=== PATIENT | male | born 1995 | race Caucasian/White ===

== ENCOUNTER 2017-11-10 13:06 | Emergency (ER) | payer MEDICAID ==
[~2017-11-10] VITALS: Ht 177.8 cm; Wt 75.0 kg
[2017-11-10] MEDS ORDERED: LORazepam 2 mg/ml vial IV ONE ×2 (13:25→15:25)
[2017-11-10] MEDS ORDERED: normal saline 1000ML IV soln IVB ONE (13:25)
[2017-11-10 13:45] LABS: BASOPHILS # (AUTO) 0.1 X10'3 (0-0.2); EOSINOPHILS # (AUTO) 0.1 X10'3 (0-0.9); EOSINOPHILS % (AUTO) 1.3 % (0-6); HEMATOCRIT 43.6 % (42.0-52.0); HEMOGLOBIN 15.2 g/dl (14.0-17.9); LYMPHOCYTES # (AUTO) 3.8 X10'3 (1.1-4.8); LYMPHOCYTES % (AUTO) 38.2 % (21-51); MEAN CORPUSCULAR HEMOGLOBIN 32.3 PG (27.0-31.0); MEAN CORPUSCULAR HGB CONC 34.9 % (33.0-36.5); MEAN CORPUSCULAR VOLUME 92.3 FL (78-98); MEAN PLATELET VOLUME 8.1 FL (7.4-10.4); MONOCYTES % (AUTO) 10.2 % (2-12); NEUTROPHILS # (AUTO) 4.9 X10'3 (1.8-7.7); NEUTROPHILS % (AUTO) 49.3 % (42-75); PLATELET COUNT 293 X10'3 (140-440); RED BLOOD COUNT 4.73 X10'6 (4.70-6.10); RED CELL DISTRIBUTION WIDTH 12.7 % (11.5-14.5)
[2017-11-10 13:58] LABS: ALANINE AMINOTRANSFERASE 24 U/L (12-78); ALBUMIN 4.6 G/DL (3.4-5.0); ALBUMIN/GLOBULIN RATIO 1.5 (1.1-1.5); ALKALINE PHOSPHATASE 62 IU/L (46-116); ANION GAP 22 (8-16); ASPARTATE AMINO TRANSFERASE 23 U/L (10-37); BILIRUBIN,TOTAL 0.9 MG/DL (0.1-1.0); BLOOD UREA NITROGEN 10 MG/DL (7-18); BUN/CREATININE RATIO 6.5 (5.4-32.0); CALCIUM 9.1 MG/DL (8.5-10.1); CHLORIDE 99 MMOL/L (99-107); CREATININE 1.55 MG/DL (0.60-1.10); GLUCOSE 140 MG/DL (70-104); SODIUM 138 MMOL/L (135-145); TOTAL CARBON DIOXIDE 17.1 MMOL/L (24-32); TOTAL PROTEIN 7.7 G/DL (6.4-8.2); eGFR 56 ML/MIN
[2017-11-10 14:00] LABS: POTASSIUM 2.4 MMOL/L (3.5-5.1)
[2017-11-10] MEDS ORDERED: potassium Cl 20 mEq SR tablet PO STA (14:05)
[2017-11-10 15:19] LABS: D-DIMER < 0.19 MG/L FEU (0-0.50)
[2017-11-10 16:10] LABS: URINE AMPHETAMINE SCREEN NEGATIVE (Neg); URINE BARBITUATE SCREEN NEGATIVE (Neg); URINE BENZODIAZEPINES SCREEN NEGATIVE (Neg); URINE CANNABINOID SCREEN POSITIVE (Neg); URINE COCAINE SCREEN NEGATIVE (Neg); URINE METHADONE SCREEN NEGATIVE (Neg); URINE OPIATE SCREEN NEGATIVE (Neg); URINE PHENCYCLIDINE SCREEN NEGATIVE (Neg)
[2017-11-10 17:33] VITALS: BP 123/57
== END 2017-11-10 17:11 | disposition home or self-care (01) ==
LOC: ER 13:07 → EDBD 13:07 → ER 17:11
DX: R00.0 Tachycardia, unspecified (principal); F41.9 Anxiety disorder, unspecified; R06.4 Hyperventilation; F32.9 Major depressive disorder, single episode, unspecified
CPT/HCPCS: 36415; 71045; 80053; 80305; 85025; 85379; 93005; 96374; 96376; 99285; J2060; J7030

== ENCOUNTER 2017-11-11 09:13 | Emergency (ER) | payer MEDICAID ==
[~2017-11-11] VITALS: Ht 177.8 cm; Wt 75.0 kg
[2017-11-11] MEDS ORDERED: LORazepam 2 mg/ml vial IV ONE (11:15)
[2017-11-11 11:32] LABS: BASOPHILS % (AUTO) 0.7 % (0-1); EOSINOPHILS % (AUTO) 0.1 % (0-6); HEMATOCRIT 41.1 % (42.0-52.0); HEMOGLOBIN 14.4 g/dl (14.0-17.9); LYMPHOCYTES # (AUTO) 0.9 X10'3 (1.1-4.8); LYMPHOCYTES % (AUTO) 12.2 % (21-51); MEAN CORPUSCULAR HEMOGLOBIN 32.8 PG (27.0-31.0); MEAN CORPUSCULAR VOLUME 93.6 FL (78-98); MEAN PLATELET VOLUME 8.2 FL (7.4-10.4); MONOCYTES # (AUTO) 0.4 X10'3 (0-0.9); MONOCYTES % (AUTO) 5.2 % (2-12); NEUTROPHILS # (AUTO) 6.2 X10'3 (1.8-7.7); NEUTROPHILS % (AUTO) 81.8 % (42-75); PLATELET COUNT 213 X10'3 (140-440); RED BLOOD COUNT 4.39 X10'6 (4.70-6.10); RED CELL DISTRIBUTION WIDTH 12.9 % (11.5-14.5); WHITE BLOOD COUNT 7.6 X10'3 (4.5-11.0)
[2017-11-11 11:48] LABS: ALANINE AMINOTRANSFERASE 21 U/L (12-78); ALBUMIN 4.2 G/DL (3.4-5.0); ALBUMIN/GLOBULIN RATIO 1.4 (1.1-1.5); ALKALINE PHOSPHATASE 62 IU/L (46-116); ANION GAP 11 (8-16); ASPARTATE AMINO TRANSFERASE 18 U/L (10-37); BILIRUBIN,TOTAL 0.6 MG/DL (0.1-1.0); BLOOD UREA NITROGEN 8 MG/DL (7-18); BUN/CREATININE RATIO 7.3 (5.4-32.0); CALCIUM 8.6 MG/DL (8.5-10.1); CHLORIDE 108 MMOL/L (99-107); CREATININE 1.09 MG/DL (0.60-1.10); GLUCOSE 108 MG/DL (70-104); SODIUM 143 MMOL/L (135-145); TOTAL CARBON DIOXIDE 23.6 MMOL/L (24-32); TOTAL PROTEIN 7.3 G/DL (6.4-8.2); eGFR 85 ML/MIN
[2017-11-11 11:58] LABS: MAGNESIUM 1.8 MG/DL (1.5-2.4); PHOSPHORUS 1.7 MG/DL (2.3-4.5)
[2017-11-11 12:39] VITALS: BP 125/67
[2017-11-12] MEDS ORDERED: HYDR-3686 PO (12:46)
== END 2017-11-11 12:43 | disposition home or self-care (01) ==
LOC: ER 09:14
DX: R00.0 Tachycardia, unspecified (principal); F41.9 Anxiety disorder, unspecified; F32.9 Major depressive disorder, single episode, unspecified
CPT/HCPCS: 36415; 80053; 83735; 84100; 84443; 84484; 85025; 93005; 96374; 99285; J2060; J7030

== ENCOUNTER 2017-11-12 10:13 | Emergency (ER) | payer MEDICAID ==
[~2017-11-12] VITALS: Ht 175.3 cm; Wt 75.0 kg
[2017-11-12] MEDS ORDERED: hydrOXYzine 25 MG tablet PO ONE (12:40)
[2017-11-12] MEDS ORDERED: HYDR-3686 PO (12:46)
[2017-11-12 12:54] VITALS: BP 129/65
== END 2017-11-12 13:08 | disposition home or self-care (01) ==
LOC: ER 10:14
DX: R00.0 Tachycardia, unspecified (principal); F41.9 Anxiety disorder, unspecified; F32.9 Major depressive disorder, single episode, unspecified; Z79.899 Other long term (current) drug therapy
CPT/HCPCS: 93005; 99284; Q0177

== ENCOUNTER 2021-06-22 12:25 | Emergency (ER) | payer MEDICAID ==
[~2021-06-22] VITALS: Ht 182.9 cm; Wt 72.7 kg
[2021-06-22 14:16] VITALS: BP 141/80
[2021-06-22] MEDS ORDERED: MELO-102 PO (14:27)
== END 2021-06-22 17:06 | disposition home or self-care (01) ==
LOC: ER 12:25
DX: M25.511 Pain in right shoulder (principal); F32.9 Major depressive disorder, single episode, unspecified; Z79.899 Other long term (current) drug therapy
CPT/HCPCS: 99283

== ENCOUNTER 2021-08-15 03:12 | Emergency (ER) | payer MEDICAID ==
[~2021-08-15] VITALS: Ht 182.9 cm; Wt 81.8 kg
[~2021-08-15 03:12] MED LIST: MELO-102 PO
[2021-08-15 03:14] VITALS: BP 121/79
--- NOTE | 2021-08-15 04:00 | NUR ---
Pt presents to the ed with c/o lower molar toothache times one day; the pt states after eating a sandwich yesterday, his tooth started hurting. He denies fever/chills, or other related symptoms. The pt is a/o, nad, skin w/d.
[2021-08-15] MEDS ORDERED: ondansetron 4mg rapidly disintigrating tab PO ONE (04:10)
[2021-08-15] MEDS ORDERED: amoxicillin 250mg capsule PO ONE (04:10)
[2021-08-15] MEDS ORDERED: AMOX500C2 PO (04:11)
== END 2021-08-15 04:23 | disposition home or self-care (01) ==
LOC: ER 03:13
DX: K02.9 Dental caries, unspecified (principal); K08.89 Other specified disorders of teeth and supporting structures; F32.A Depression, unspecified; Z79.899 Other long term (current) drug therapy
CPT/HCPCS: 99283

== ENCOUNTER 2021-08-21 20:08 | Emergency (ER) | payer MEDICAID ==
[~2021-08-21] VITALS: Ht 177.8 cm; Wt 81.8 kg
[~2021-08-21 20:08] MED LIST changes: +AMOX500C2 PO
[2021-08-21] MEDS ORDERED: HYDROcodone/acetaminophen 5mg/325mg tablet PO ONE (21:20)
[2021-08-21] MEDS ORDERED: HYDR-3965 PO (21:35)
[2021-08-21 21:48] VITALS: BP 117/87
== END 2021-08-21 21:53 | disposition home or self-care (01) ==
LOC: ER 20:09
DX: K02.9 Dental caries, unspecified (principal); K08.89 Other specified disorders of teeth and supporting structures; F32.A Depression, unspecified; Z79.2 Long term (current) use of antibiotics; Z79.899 Other long term (current) drug therapy
CPT/HCPCS: 99283

== ENCOUNTER 2021-11-19 04:07 | Inpatient (IN) | payer MEDICAID ==
[~2021-11-19] VITALS: Ht 180.3 cm; Wt 77.3 kg
[2021-11-19] VITALS (17 sets, daily range): BP systolic 97–126; BP diastolic 57–77
[~2021-11-19 04:07] MED LIST changes: -AMOX500C2 PO
[2021-11-19] MEDS ORDERED: aspirin 81mg tab.chew PO ONE ×2 (04:40→05:35)
[2021-11-19 05:09] LABS: BASOPHILS % (AUTO) 0.6 % (0-1); EOSINOPHILS # (AUTO) 0.1 X10'3 (0-0.9); EOSINOPHILS % (AUTO) 1.5 % (0-6); HEMATOCRIT 39.7 % (42.0-52.0); HEMOGLOBIN 13.3 g/dl (14.0-17.9); LYMPHOCYTES # (AUTO) 1.2 X10'3 (1.1-4.8); LYMPHOCYTES % (AUTO) 15.6 % (21-51); MEAN CORPUSCULAR HEMOGLOBIN 30.9 PG (27.0-31.0); MEAN CORPUSCULAR HGB CONC 33.6 g/dL (33.0-36.5); MEAN CORPUSCULAR VOLUME 91.9 FL (78-98); MEAN PLATELET VOLUME 8.1 FL (7.4-10.4); MONOCYTES # (AUTO) 0.8 X10'3 (0-0.9); MONOCYTES % (AUTO) 10.5 % (2-12); NEUTROPHILS # (AUTO) 5.8 X10'3 (1.8-7.7); NEUTROPHILS % (AUTO) 71.8 % (42-75); PLATELET COUNT 205 X10'3 (140-440); RED BLOOD COUNT 4.32 X10'6 (4.70-6.10); RED CELL DISTRIBUTION WIDTH 12.7 % (11.5-14.5)
[2021-11-19 05:20] LABS: ALANINE AMINOTRANSFERASE 88 U/L (12-78); ALBUMIN 3.4 G/DL (3.4-5.0); ALBUMIN/GLOBULIN RATIO 1.1 (1.1-1.5); ALKALINE PHOSPHATASE 87 IU/L (46-116); ANION GAP 7 (8-16); ASPARTATE AMINO TRANSFERASE 106 U/L (10-37); BILIRUBIN,TOTAL 0.2 MG/DL (0.1-1.0); BLOOD UREA NITROGEN 15 MG/DL (7-18); BUN/CREATININE RATIO 15.3 (5.4-32.0); CALCIUM 8.9 MG/DL (8.5-10.1); CHLORIDE 106 MMOL/L (99-107); CREATININE 0.98 MG/DL (0.60-1.10); GLUCOSE 112 MG/DL (70-104); POTASSIUM 4.1 MMOL/L (3.5-5.1); SODIUM 143 MMOL/L (135-145); TOTAL CARBON DIOXIDE 30.1 MMOL/L (24-32); TOTAL PROTEIN 6.5 G/DL (6.4-8.2); eGFR > 90 ML/MIN
[2021-11-19 05:27] LABS: MAGNESIUM 1.9 MG/DL (1.5-2.4)
[2021-11-19] MEDS ORDERED: normal saline 1000ML IV soln IVB ONE (06:40)
[2021-11-19 06:43] LABS: URINE AMPHETAMINE SCREEN NEGATIVE (Neg); URINE BARBITUATE SCREEN NEGATIVE (Neg); URINE BENZODIAZEPINES SCREEN NEGATIVE (Neg); URINE CANNABINOID SCREEN POSITIVE (Neg); URINE COCAINE SCREEN NEGATIVE (Neg); URINE METHADONE SCREEN NEGATIVE (Neg); URINE OPIATE SCREEN NEGATIVE (Neg); URINE PHENCYCLIDINE SCREEN NEGATIVE (Neg)
[2021-11-19] MEDS ORDERED: heparin 10,000 units/1 ML INJ IV ONE (08:10)
[2021-11-19] MEDS ORDERED: heparin 25,000 UNIT/250ml bag 250 ML IV SCH (08:10)
--- NOTE | 2021-11-19 08:27 | NUR ---
technical sales support specialist at bedside at this time.
[2021-11-19] MEDS ORDERED: HYDROcodone/acetaminophen 5mg/325mg tablet PO PRN (08:45)
[2021-11-19] MEDS ORDERED: magnesium 2GM in 50ml NS 50 ML IV PRN (08:45)
[2021-11-19] MEDS ORDERED: POTASSIUM BICARB 20meq eff tab 20 MEQ TABLET.EFF PO PRN ×2 (08:45)
[2021-11-19] MEDS ORDERED: acetaminophen 325mg tablet PO PRN ×2 (08:45)
[2021-11-19] MEDS ORDERED: nitroGLYCERIN 0.4mg SUBLingual tab SL PRN (08:45)
[2021-11-19] MEDS ORDERED: diphenhydrAMINE 25mg capsule PO PRN (08:45)
[2021-11-19] MEDS ORDERED: acetaminophen 650mg rectal suppository RC PRN (08:45)
[2021-11-19] MEDS ORDERED: magnesium 4gm in 100ml NS 100 ML IV PRN (08:45)
[2021-11-19] MEDS ORDERED: potassium CL 10mEq/100ml bag 100 ML IV PRN (08:45)
[2021-11-19] MEDS ORDERED: ondansetron/PF 4mg/2ml inj IV PRN (08:45)
[2021-11-19] MEDS ORDERED: magnesium hydroxide 30ml (MOM) UD suspension PO PRN (08:45)
[2021-11-19] MEDS ORDERED: magnesium Cl slow-release 64mg tablet PO PRN (08:45)
[2021-11-19] MEDS ORDERED: morphine 2 MG/ML inj. syringe IV PRN ×2 (08:45)
[2021-11-19] MEDS ORDERED: HYDROcodone/acetaminophen 10/325mg tab PO PRN (08:45)
[2021-11-19] MEDS ORDERED: mag hydrox/Alum hydrox/simeth 30ml oral suspension PO PRN (08:45)
[2021-11-19 09:03] LABS: APTT 37 SECONDS (22-32)
[2021-11-19 09:06] LABS: HEMOGLOBIN A1C 5.6 % (4.5-6.2)
[2021-11-19] MEDS ORDERED: ESCI-8 PO (12:26)
[2021-11-19 13:01] LABS: CHOL/HDL RATIO 2.3 (0.00-4.99); CHOLESTEROL 137 MG/DL (0-200); HDL CHOLESTEROL 59 MG/DL (35-60); LDL CHOLESTEROL 65 MG/DL (50-100); TRIGLYCERIDES 29 MG/DL (20-135)
--- NOTE | 2021-11-19 14:13 | NUR ---
CONTRAST SCREEN FORM SIGNED AND FAXED TO CT
[2021-11-19] MEDS ORDERED: iohexol 350MG/ML 100ml bottle IV ONE ×2 (14:16→18:56)
--- NOTE | 2021-11-19 16:02 | NUR ---
per request of Josselyn Dodge I ordered a regular diet and we will save his tray until after he goes to the clinical laboratory technologist.
--- NOTE | 2021-11-19 18:48 | NUR ---
Problems reprioritized. Patient report given, questions answered & plan of care reviewed with VINH MALDONADO.
[2021-11-19] MEDS ORDERED: midazolam 1 mg/ML 2ml injection ONE (18:56)
[2021-11-19] MEDS ORDERED: nitroGLYCERIN-Tridil 50MG/D5W 250 ML IV ONE (18:56)
[2021-11-19] MEDS ORDERED: verapamil 2.5 mg/ml inj IV ONE (18:56)
[2021-11-19] MEDS ORDERED: heparin 1,000unit/ml 10ml vial 10 ML ONE (18:56)
[2021-11-19] MEDS ORDERED: LIDOcaine 1% 30ml preserv. free vial ONE (18:56)
[2021-11-19] MEDS ORDERED: fentaNYL/PF 50MCG/1 ML 2ML syringe ONE (18:56)
[2021-11-19] MEDS: normal saline 1000ml 1,000 ML IV SCH ×2 (18:57→22:05)
[2021-11-19] MEDS: K and/or MAG REPLACEMENT MC SCH (20:00)
[2021-11-19] MEDS: carVEDilol 3.125mg tablet PO SCH (20:00)
[2021-11-19] MEDS: docusate sod 100mg capsule PO SCH (20:00)
--- NOTE | 2021-11-20 01:58 | NUR ---
Patient currently sleeping, denies pain since returning from [employer]. Right wrist site had band removed around 0000, no bleeding from site, patient has good pulse and sensation. Vital signs with in normal ranges. Will continue to monitor patient.
[2021-11-20 02:00] VITALS: BP 101/52
[2021-11-20 06:03] LABS: BASOPHILS % (AUTO) 0.8 % (0-1); EOSINOPHILS # (AUTO) 0.1 X10'3 (0-0.9); EOSINOPHILS % (AUTO) 1.9 % (0-6); HEMATOCRIT 42.7 % (42.0-52.0); HEMOGLOBIN 14.4 g/dl (14.0-17.9); LYMPHOCYTES # (AUTO) 1.2 X10'3 (1.1-4.8); LYMPHOCYTES % (AUTO) 22.4 % (21-51); MEAN CORPUSCULAR HEMOGLOBIN 31.7 PG (27.0-31.0); MEAN CORPUSCULAR HGB CONC 33.7 g/dL (33.0-36.5); MEAN CORPUSCULAR VOLUME 94.1 FL (78-98); MEAN PLATELET VOLUME 8.1 FL (7.4-10.4); MONOCYTES # (AUTO) 0.7 X10'3 (0-0.9); MONOCYTES % (AUTO) 12.3 % (2-12); NEUTROPHILS # (AUTO) 3.5 X10'3 (1.8-7.7); NEUTROPHILS % (AUTO) 62.6 % (42-75); PLATELET COUNT 198 X10'3 (140-440); RED BLOOD COUNT 4.53 X10'6 (4.70-6.10); RED CELL DISTRIBUTION WIDTH 13.2 % (11.5-14.5); WHITE BLOOD COUNT 5.5 X10'3 (4.5-11.0)
[2021-11-20 06:28] LABS: ALANINE AMINOTRANSFERASE 71 U/L (12-78); ALBUMIN 3.2 G/DL (3.4-5.0); ALKALINE PHOSPHATASE 49 IU/L (46-116); ANION GAP 11 (8-16); ASPARTATE AMINO TRANSFERASE 83 U/L (10-37); BILIRUBIN,TOTAL 0.4 MG/DL (0.1-1.0); BLOOD UREA NITROGEN 11 MG/DL (7-18); BUN/CREATININE RATIO 14.3 (5.4-32.0); CALCIUM 8.7 MG/DL (8.5-10.1); CHLORIDE 106 MMOL/L (99-107); CHOL/HDL RATIO 2.6 (0.00-4.99); CHOLESTEROL 144 MG/DL (0-200); CREATININE 0.77 MG/DL (0.60-1.10); GLUCOSE 103 MG/DL (70-104); HDL CHOLESTEROL 55 MG/DL (35-60); LDL CHOLESTEROL 71 MG/DL (50-100); PHOSPHORUS 3.7 MG/DL (2.3-4.5); POTASSIUM 3.7 MMOL/L (3.5-5.1); SODIUM 140 MMOL/L (135-145); TOTAL CARBON DIOXIDE 23.4 MMOL/L (24-32); TOTAL PROTEIN 6.5 G/DL (6.4-8.2); TRIGLYCERIDES 81 MG/DL (20-135); eGFR > 90 ML/MIN
[2021-11-20 07:00] VITALS: BP 121/81
[2021-11-20] MEDS ORDERED: aspirin 81mg, enteric-coated 1 TAB TABLET.DR PO SCH (08:00)
[2021-11-20] MEDS ORDERED: ESCITALOPRAM OXALATE 5 MG TABLET PO SCH (08:00)
[2021-11-20] MEDS ORDERED: atorvastatin 10mg tablet PO SCH (08:00)
[2021-11-20] MEDS ORDERED: lisinopril 5mg tablet PO SCH (08:00)
[2021-11-20] MEDS: carVEDilol 3.125mg tablet PO SCH (08:00)
[2021-11-20] MEDS: docusate sod 100mg capsule PO SCH (08:00)
[2021-11-20] MEDS: K and/or MAG REPLACEMENT MC SCH (08:00)
[2021-11-20 10:46] LABS: HIV ANTIBODY 1&2 RAPID NON-REACTIVE (Neg)
[2021-11-20 11:00] VITALS: BP 108/69
--- NOTE | 2021-11-20 15:46 | NUR ---
Patient was DC to home and picked by 2 family members. PIV was removed with cannula intact. Cath site CDI well approximated, no hematoma, no bruising, distal pulses/sensation intact. DC instructions were reviewed with patient and family and they all verbalized understanding. All questions were answered to satisfaction. Patient was walked to lobby and taken home in private vehicle. Patient was alert, oriented, and appropriate at time of DC.
[2021-11-21 15:48] LABS: EBV AB VCA, IGM <36.0 U/mL (0.0-35.9); HEP A AB, IGM Negative (Negative); HEPATITIS C ANTIBODY 0.1 s/co ratio (0.0-0.9)
== END 2021-11-20 13:39 | disposition home or self-care (01) | DRG 192 ==
LOC: ER 04:09 → ED HOLD 08:44 → PCU 3S 09:54
PROVIDERS: ADMIT Family Medicine; ATTEND Family Medicine
PROC: 4A023N7 Measurement of Cardiac Sampling and Pressure, Left Heart, Percutaneous Approach (ICD-10-PCS; principal; 2021-11-19)
PROC: B2111ZZ Fluoroscopy of Multiple Coronary Arteries using Low Osmolar Contrast (ICD-10-PCS; 2021-11-19)
PROC: B32T1ZZ Computerized Tomography (CT Scan) of Left Pulmonary Artery using Low Osmolar Contrast (ICD-10-PCS; 2021-11-19)
PROC: B3201ZZ Computerized Tomography (CT Scan) of Thoracic Aorta using Low Osmolar Contrast (ICD-10-PCS; 2021-11-19)
PROC: B32S1ZZ Computerized Tomography (CT Scan) of Right Pulmonary Artery using Low Osmolar Contrast (ICD-10-PCS; 2021-11-19)
DX: I40.0 Infective myocarditis (principal); I21.4 Non-ST elevation (NSTEMI) myocardial infarction; I31.9 Disease of pericardium, unspecified; K74.60 Unspecified cirrhosis of liver; F12.90 Cannabis use, unspecified, uncomplicated; F32.A Depression, unspecified; F41.9 Anxiety disorder, unspecified; Z20.822 Contact with and (suspected) exposure to COVID-19; Z63.72 Alcoholism and drug addiction in family; Z81.3 Family history of other psychoactive substance abuse and dependence; Z87.891 Personal history of nicotine dependence; Z71.51 Drug abuse counseling and surveillance of drug abuser; Z79.899 Other long term (current) drug therapy
CPT/HCPCS: 36415; 71045; 71275; 80053; 80061; 80305; 83036; 83735; 83880; 84100; 84484; 85025; 85610; 85651; 85730; 86140; 86603; 86645; 86658; 86663; 86664; 86665; 86703; 86705; 86709; 86747; 86803; 87081; 87635; 93005; 93306; 93458; 96374; 99152; 99285; A4620; A5120; A6258; C1769; C1894; C9803; G0378; J1644; J2250; J3010; J3490; J7030; Q9967

== ENCOUNTER 2022-04-07 00:04 | Emergency (ER) | payer MEDICAID ==
[~2022-04-07] VITALS: Ht 180.3 cm; Wt 81.8 kg
[~2022-04-07 00:04] MED LIST changes: +ESCI-8 PO; -MELO-102 PO
[2022-04-07 00:27] VITALS: BP 113/87
[2022-04-07] MEDS ORDERED: AMOX-117 PO (01:14)
== END 2022-04-07 01:32 | disposition home or self-care (01) ==
LOC: ER 00:07
DX: K02.9 Dental caries, unspecified (principal); F32.A Depression, unspecified; Z79.899 Other long term (current) drug therapy
CPT/HCPCS: 99283

== ENCOUNTER 2023-05-11 01:30 | Emergency (ER) | payer MEDICAID ==
[~2023-05-11] VITALS: Ht 180.3 cm; Wt 81.8 kg
[2023-05-11] MEDS ORDERED: TETanus/Pertussis (Acell)/Diphther VAC/PF (Tdap-Adult) 0.5ml syringe IMVAC ONE (01:40)
[2023-05-11 02:07] VITALS: BP 130/75; PULSE 95; RESP 16; TEMP 98; O2SAT 98
== END 2023-05-11 02:10 ==
LOC: ER 01:31
DX: S00.511A Abrasion of lip, initial encounter (principal); Z79.899 Other long term (current) drug therapy; Z23 Encounter for immunization; W22.11XA Striking against or struck by driver side automobile airbag, initial encounter; Y93.89 Activity, other specified; Y92.89 Other specified places as the place of occurrence of the external cause; Y99.8 Other external cause status
CPT/HCPCS: 90471; 90715; 99283

== ENCOUNTER 2023-07-16 05:17 | Emergency (ER) | payer MEDICAID ==
[~2023-07-16] VITALS: Ht 180.3 cm; Wt 81.8 kg
[2023-07-16 05:20] VITALS: BP 139/87; PULSE 92; RESP 16; TEMP 98; O2SAT 99
[2023-07-16] MEDS ORDERED: AMOX500C2 PO (05:44)
[2023-07-16] MEDS ORDERED: HYDR-3965 PO (05:44)
[2023-07-16] MEDS: HYDROcodone/acetaminophen 5mg/325mg tablet PO ONE ×2 (06:00)
== END 2023-07-16 06:08 | disposition home or self-care (01) ==
LOC: ER 05:17
DX: K02.9 Dental caries, unspecified (principal); K04.7 Periapical abscess without sinus; F32.A Depression, unspecified; Z79.899 Other long term (current) drug therapy
CPT/HCPCS: 99283

== ENCOUNTER 2023-10-12 03:42 | Emergency (ER) | payer MEDICAID ==
[~2023-10-12] VITALS: Ht 180.3 cm; Wt 80.0 kg
[2023-10-12 03:45] VITALS: BP 143/74; PULSE 81; RESP 16; TEMP 98.2; O2SAT 98
== END 2023-10-12 08:04 | disposition left against medical advice (07) ==
LOC: ER 03:42
DX: K04.7 Periapical abscess without sinus (principal); Z53.21 Procedure and treatment not carried out due to patient leaving prior to being seen by health care provider

== ENCOUNTER 2023-10-21 21:36 | Emergency (ER) | payer MEDICAID ==
[~2023-10-21] VITALS: Ht 180.3 cm; Wt 84.0 kg
[2023-10-21 21:52] VITALS: BP 130/79; PULSE 94; RESP 16; TEMP 98.9; O2SAT 97
[2023-10-21] MEDS ORDERED: CLIN-97 PO (22:49)
[2023-10-21] MEDS ORDERED: BENZ9GEL TOP (22:49)
[2023-10-21] MEDS: CefTRIAXone 1000mg IM Kit (w/lidocaine diluent) IM ONE (23:27)
== END 2023-10-21 23:43 | disposition home or self-care (01) ==
LOC: ER 21:37
DX: K04.7 Periapical abscess without sinus (principal); F32.A Depression, unspecified
CPT/HCPCS: 96372; 99283; J0696

== ENCOUNTER 2023-12-01 11:34 | Emergency (ER) | payer MEDICAID ==
[~2023-12-01] VITALS: Ht 180.3 cm; Wt 83.1 kg
[~2023-12-01 11:34] MED LIST changes: +BENZ9GEL TOP; +CLIN-97 PO
[2023-12-01 11:46] VITALS: TEMP 98.4
[2023-12-01] MEDS ORDERED: HYDR-3965 PO (13:37)
[2023-12-01] MEDS ORDERED: CLIN-97 PO (13:42)
[2023-12-01 13:46] VITALS: BP 120/68; PULSE 80; RESP 16; O2SAT 99
[2023-12-01] MEDS: clindamycin 150mg capsule PO ONE (13:46)
== END 2023-12-01 13:48 | disposition home or self-care (01) ==
LOC: ER 11:34
DX: K04.7 Periapical abscess without sinus (principal); F17.200 Nicotine dependence, unspecified, uncomplicated; Z79.899 Other long term (current) drug therapy; Z79.2 Long term (current) use of antibiotics
CPT/HCPCS: 99283

== ENCOUNTER 2024-01-21 15:37 | Emergency (ER) | payer MEDICAID ==
[~2024-01-21] VITALS: Ht 180.3 cm; Wt 81.8 kg
[2024-01-21] MEDS ORDERED: LORazepam 2 mg/ml vial IM ONE (16:05)
[2024-01-21] MEDS ORDERED: diphenhydrAMINE 50 mg/ml inj IM ONE (16:05)
[2024-01-21] MEDS ORDERED: haloperidol lactate 5mg/ml inj IM ONE (16:05)
[2024-01-21 16:35] LABS: URINE AMPHETAMINE SCREEN NEGATIVE (Neg); URINE BARBITUATE SCREEN NEGATIVE (Neg); URINE BENZODIAZEPINES SCREEN NEGATIVE (Neg); URINE CANNABINOID SCREEN POSITIVE (Neg); URINE COCAINE SCREEN NEGATIVE (Neg); URINE METHADONE SCREEN NEGATIVE (Neg); URINE OPIATE SCREEN NEGATIVE (Neg); URINE PHENCYCLIDINE SCREEN NEGATIVE (Neg)
[2024-01-21 16:41] LABS: EOSINOPHILS # (AUTO) 0.1 X10'3 (0-0.9); EOSINOPHILS % (AUTO) 1.6 % (0-6); MONOCYTES # (AUTO) 0.5 X10'3 (0-0.9); NEUTROPHILS # (AUTO) 3.5 X10'3 (1.8-7.7); RED CELL DISTRIBUTION WIDTH 14.2 % (11.5-14.5)
[2024-01-21 16:42] LABS: BASOPHILS # (AUTO) 0.1 X10'3 (0-0.2); HEMATOCRIT 45.4 % (42.0-52.0); HEMOGLOBIN 15.7 g/dl (14.0-17.9); LYMPHOCYTES % (AUTO) 31.8 % (21-51); MEAN CORPUSCULAR HEMOGLOBIN 32.3 PG (27.0-31.0); MEAN CORPUSCULAR HGB CONC 34.5 g/dL (33.0-36.5); MEAN CORPUSCULAR VOLUME 93.6 FL (78-98); MEAN PLATELET VOLUME 7.8 FL (7.4-10.4); MONOCYTES % (AUTO) 7.9 % (2-12); NEUTROPHILS % (AUTO) 56.7 % (42-75); PLATELET COUNT 333 X10'3 (140-440); RED BLOOD COUNT 4.85 X10'6 (4.70-6.10); WHITE BLOOD COUNT 6.2 X10'3 (4.5-11.0)
[2024-01-21 16:47] LABS: ALBUMIN 4.2 G/DL (3.4-5.0); ANION GAP 11 (8-16); BLOOD UREA NITROGEN 17 MG/DL (7-18); BUN/CREATININE RATIO 14.9 (10.0-20.0); CALCIUM 8.8 MG/DL (8.5-10.1); CHLORIDE 102 MMOL/L (99-107); CREATININE 1.14 MG/DL (0.60-1.10); ETHANOL 11 MG/DL (<10); SODIUM 140 MMOL/L (135-145); TOTAL CARBON DIOXIDE 27.3 MMOL/L (24-32); eCRCL 103 ML/MIN; eGFR 76 ML/MIN
[2024-01-21 16:51] LABS: GLUCOSE 93 MG/DL (70-104); POTASSIUM 3.7 MMOL/L (3.5-5.1)
[2024-01-21] MEDS ORDERED: haloperidol lactate 5mg/ml inj IM PRN (17:00)
[2024-01-21] MEDS ORDERED: LORazepam 2 mg/ml vial IM PRN (17:00)
[2024-01-21] MEDS ORDERED: diphenhydrAMINE 50 mg/ml inj IM PRN (17:00)
[2024-01-21] MEDS ORDERED: DIVA125T31 PO (19:46)
[2024-01-21] MEDS ORDERED: PROP10TA10 PO (19:46)
[2024-01-21] MEDS ORDERED: LUMA42CA PO (19:46)
[2024-01-21] MEDS: QUEtiapine 25mg tablet PO ONE (20:29)
[2024-01-21] MEDS: diphenhydrAMINE 25mg capsule PO ONE (20:29)
[2024-01-22 05:48] VITALS: TEMP 97.6
[2024-01-22] MEDS: LUMATEPERONE TOSYLATE PO SCH (08:00)
[2024-01-22] MEDS: divalproex sod 125mg tablet.DR PO SCH (09:58)
[2024-01-22] MEDS: propranolol 10mg tablet PO SCH (09:58)
[2024-01-22 14:10] LABS: BILIRUBIN,URINE NEGATIVE (Neg); CLARITY,URINE CLEAR (Clear); COLOR,URINE YELLOW (Yellow); GLUCOSE, URINE NEGATIVE (Neg); KETONES,URINE NEGATIVE (Neg); LEUKOCYTE ESTERASE ,URINE NEGATIVE (Neg); NITRITES, URINE NEGATIVE (Neg); OCCULT BLOOD,URINE TRACE-INTACT (Neg); PROTEIN,URINE NEGATIVE (Neg); UROBILINOGEN,URINE 0.2 E.U/dL (0.2-1.0)
[2024-01-22 14:17] LABS: UA COLLECTION TYPE NON-SPECIFIED
[2024-01-22 14:18] LABS: BACTERIA,URINE NONE SEEN /HPF (Neg); MUCUS STRANDS NONE SEEN /LPF (Neg); RBC,URINE 0-2 /HPF (0-2); SQUAMOUS EPITHELIAL CELL,UR FEW /LPF (FEW); WBC,URINE 0-4 /HPF (0-4)
[2024-01-22 14:24] LABS: ALANINE AMINOTRANSFERASE 26 U/L (12-78); ALBUMIN/GLOBULIN RATIO 1.1 (1.1-1.5); ALKALINE PHOSPHATASE 71 IU/L (46-116); ANION GAP 9 (8-16); ASPARTATE AMINO TRANSFERASE 16 U/L (10-37); BILIRUBIN,TOTAL 0.3 MG/DL (0.1-1.0); BLOOD UREA NITROGEN 16 MG/DL (7-18); BUN/CREATININE RATIO 12.4 (10.0-20.0); CALCIUM 8.8 MG/DL (8.5-10.1); CHLORIDE 102 MMOL/L (99-107); CREATININE 1.29 MG/DL (0.60-1.10); GLUCOSE 84 MG/DL (70-104); POTASSIUM 4.2 MMOL/L (3.5-5.1); SODIUM 139 MMOL/L (135-145); TOTAL CARBON DIOXIDE 28.4 MMOL/L (24-32); TOTAL PROTEIN 7.5 G/DL (6.4-8.2); eCRCL 91 ML/MIN; eGFR 66 ML/MIN
[2024-01-22 15:26] VITALS: BP 122/95; PULSE 92; RESP 16; O2SAT 100
== END 2024-01-22 15:48 ==
LOC: ER 15:38
DX: R45.851 Suicidal ideations (principal); Z20.822 Contact with and (suspected) exposure to COVID-19; F32.A Depression, unspecified; Z79.2 Long term (current) use of antibiotics; Z79.899 Other long term (current) drug therapy
CPT/HCPCS: 36415; 80048; 80053; 80305; 80320; 81001; 84443; 85025; 87811; 99291; Q0163

== ENCOUNTER 2024-06-01 17:25 | Emergency (ER) | payer MEDICAID ==
[~2024-06-01] VITALS: Ht 180.3 cm; Wt 92.7 kg
[~2024-06-01 17:25] MED LIST changes: -BENZ9GEL TOP; -CLIN-97 PO; +DIVA125T31 PO; -ESCI-8 PO; +LUMA42CA PO; +PROP10TA10 PO
[2024-06-01 17:27] VITALS: BP 131/84; PULSE 76; RESP 16; TEMP 98; O2SAT 97
== END 2024-06-01 19:39 | disposition left against medical advice (07) ==
LOC: ER 17:26
DX: K08.89 Other specified disorders of teeth and supporting structures (principal); Z53.21 Procedure and treatment not carried out due to patient leaving prior to being seen by health care provider

== ENCOUNTER → 2024-06-02 | Emergency (ER) | payer MEDICAID ==
[~2024-06-02] VITALS: Ht 180.3 cm; Wt 81.8 kg
[2024-06-02 16:10] VITALS: BP 136/77; PULSE 117; RESP 18; TEMP 97.8; O2SAT 95
[2024-06-02 16:27] LABS: BASOPHILS # (AUTO) 0.1 X10'3 (0-0.2); BASOPHILS % (AUTO) 1.5 % (0-1); EOSINOPHILS # (AUTO) 0.1 X10'3 (0-0.9); EOSINOPHILS % (AUTO) 0.9 % (0-6); HEMATOCRIT 42.1 % (42.0-52.0); HEMOGLOBIN 14.3 g/dl (14.0-17.9); LYMPHOCYTES # (AUTO) 1.6 X10'3 (1.1-4.8); MEAN CORPUSCULAR HEMOGLOBIN 32.1 PG (27.0-31.0); MEAN CORPUSCULAR VOLUME 94.5 FL (78-98); MEAN PLATELET VOLUME 7.8 FL (7.4-10.4); MONOCYTES # (AUTO) 0.5 X10'3 (0-0.9); NEUTROPHILS # (AUTO) 4.5 X10'3 (1.8-7.7); NEUTROPHILS % (AUTO) 66.6 % (42-75); PLATELET COUNT 286 X10'3 (140-440); RED BLOOD COUNT 4.45 X10'6 (4.70-6.10); WHITE BLOOD COUNT 6.8 X10'3 (4.5-11.0)
[2024-06-02 16:57] LABS: ALBUMIN 4.7 G/DL (3.4-5.0); ANION GAP 10 (8-16); BLOOD UREA NITROGEN 9 MG/DL (7-18); BUN/CREATININE RATIO 7.1 (10.0-20.0); CALCIUM 9.4 MG/DL (8.5-10.1); CHLORIDE 105 MMOL/L (99-107); CREATININE 1.27 MG/DL (0.60-1.10); GLUCOSE 99 MG/DL (70-104); POTASSIUM 3.7 MMOL/L (3.5-5.1); SODIUM 140 MMOL/L (135-145); THYROID STIMULATING HORMONE 0.49 ulU/ml (0.34-4.50); TOTAL CARBON DIOXIDE 24.6 MMOL/L (24-32); eCRCL 92 ML/MIN; eGFR 68 ML/MIN
[2024-06-02 17:39] LABS: ETHANOL < 10 MG/DL (<10)
== END | disposition left against medical advice (07) ==
LOC: ER 16:08
DX: F32.A Depression, unspecified (principal); Z53.21 Procedure and treatment not carried out due to patient leaving prior to being seen by health care provider
CPT/HCPCS: 80048; 80320; 84443; 85025

== ENCOUNTER 2025-02-24 15:52 | Emergency (ER) | payer OTHER ==
[~2025-02-24] VITALS: Ht 180.3 cm; Wt 81.8 kg
[~2025-02-24 15:52] MED LIST changes: -LUMA42CA PO; +LUMA42CA4 PO
[2025-02-24 16:11] VITALS: BP 139/88; PULSE 98; O2SAT 99
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
[2025-02-24] MEDS ORDERED: CYCL-1 PO (18:22)
[2025-02-24 18:38] VITALS: RESP 16
[2025-02-24] MEDS: ketorolac trometh 15mg/ml vial 15 MG/ML ML IM ONE (18:38)
== END 2025-02-24 18:45 | disposition home or self-care (01) ==
LOC: ER 15:52
DX: M54.2 Cervicalgia (principal); M79.18 Myalgia, other site; V43.52XA Car driver injured in collision with other type car in traffic accident, initial encounter; Y93.89 Activity, other specified; Y92.410 Unspecified street and highway as the place of occurrence of the external cause; Y99.8 Other external cause status
CPT/HCPCS: 72040; 96372; 99283; J1885; J7030